=== PATIENT | male | born 1940 | race Caucasian/White ===

== ENCOUNTER 2016-07-26 14:32 | Emergency (ER) | payer OTHER ==
[~2016-07-26] VITALS: Ht 188 cm; Wt 113.4 kg
--- NOTE | ~2016-07-26 | EKG ---
[place] [address] [facility] [place] [address] ELECTROCARDIOGRAM REPORT Name: BRISA THOMAS Room #: DEP [facility]#: [id number] Admission: 07/26/16 Attend Phys: Discharge: 07/26/16 Date of : 42 Report #: [id number] THIS REPORT FOR: //name// [facility] ED Test Date: 2016-07-26 Test Time: 14:58:11 Pat Name: BRISA THOMAS Department: Room: Gender: M Gre Tutor: [id number] : 1940 Requested By: Abdi Stovall Order Number: [id number] MD: Pablo Medina Measurements Intervals [place] Rate: 66 P: 42 AL: 167 QRS: 23 QRSD: 103 T: 77 QT: 582 QTc: 610 Interpretive Statements Sinus rhythm Abnormal R-wave progression, early transition Borderline T wave abnormalities Prolonged QT interval Compared to ECG 05/08/2016 06:38:09 Prolonged QT interval now present Electronically Signed On 07-27-2016 14:21:02 STEM CUTTER by Pablo Medina [email or web address] <ELECTRONICALLY SIGNED> By: Pablo Medina MD, [facility] 07/27/16 142 1458 1458 Pablo Medina MD, [facility] /EPI
[~2016-07-26 14:32] MED LIST: ACETAMINOPHEN325 M1 PO; ADULT LOW DOSE81 MG PO; ALENDRONATE SOD70 MG PO; AMBIEN 10 MG TA10 MG PO; AMBIEN 5 MG TABL5 M1 PO; ASPIRIN EC81 M1 PO; B12INJ IM; BIOTENE1000 ML; BYSTOLIC 5 MG5 M1 PO; BYSTOLIC 5 MG5 MG PO; CELEXA; CELEXA 20 MG TA20 M1 PO; CELEXA 20 MG TA20 MG PO; CLOTRIMAZOLE-BE15 GM; COUMADIN 5 MG TA5 M1 PO; DEPO-TESTO200 MG/1 M; DEXILANT60 MG PO; DUONEB 2.5-0.5 M3 ML INH; ENOXAPARIN120 MG/0.1 SUBQ; FISH OIL 1,2001 EAC4 PO; FISHOIL; FISHOIL PO; FLUVASTATIN SOD40 MG PO; FOSAMAX 70 MG T70 MG PO; HYDROCODONE-APA1 TA1 PO; LEVAQUIN 500 M500 M2 PO; LEXAPRO20 MG PO; LIDODERM 5%1 PATC1 TRANSDERM; LISINOPRIL10 MG PO; LISINOPRIL20 MG PO; LISINOPRIL40 MG PO; LISINOPRIL5 MG PO; LOPERAMIDE 2 MG2 M1 PO; METHYLFOLATE PO; MOBIC15 MG PO; NORCO 5-325 TA1 EACH PO; NORVASC5 MG PO; PRAVASTATIN SOD40 MG PO; PREDNISONE 20 M20 MG PO; PROMETHAZINE-D120 ML PO; PROTONIX40 M2 PO; SIMVASTATIN40 MG PO; TRAZODONE HCL50 MG PO; VERAPAMIL HCL180 MG PO; VITAMIN A10000 UNI3 PO; VITAMIN D 5050000 I1 PO; VITAMIN D1000 UNI1 PO; VITAMIN D2000 UNI1 PO; XANAX 0.5 MG0.5 MG PO; ZETIA10 MG PO; ZOFRAN ODT4 MG PO; ZONEGRAN100 MG PO
[2016-07-26 15:07] LABS: ABSOLUTE NEUTROPHILS 5.8 thou/uL (1.4-8.2); BASOPHILS 0.9 % (0.0-2.0); EOSINOPHILS 3.5 % (0.0-3.0); HEMATOCRIT 36.2 % (42.0-52.0); HEMOGLOBIN 12.5 gm/dL (14.0-18.0); LYMPHOCYTES 18.3 % (24.0-44.0); MCH 32.6 pg (26.0-34.0); MCHC 34.4 % (28.0-37.0); MCV 94.5 fL (80.0-100.0); MONOCYTES 7.1 % (1.0-8.0); PLATELET COUNT 215 thou/uL (150-400); POLYS 70.2 % (36.0-66.0); RBC 3.83 mil/uL (4.50-6.00); RDW 14.1 % (10.5-14.5); WBC 8.2 thou/uL (4.0-11.0)
[2016-07-26] MEDS ORDERED: TOBRAMYCIN-DEXAM5 ML OP (15:09)
[2016-07-26 15:15] LABS: CALCIUM 8.7 mg/dL (8.5-10.1); CREATININE 2.1 mg/dL (0.6-1.3); POTASSIUM 3.5 mmol/L (3.5-5.1)
[2016-07-26 15:19] LABS: MANUAL DIFF NO
[2016-07-26 15:20] LABS: ALBUMIN 3.4 g/dL (3.4-5.0); TOTAL BILIRUBIN 0.4 mg/dL (<0.1-1.0); TOTAL PROTEIN 7.3 g/dL (6.4-8.2)
[2016-07-26] MEDS ORDERED: VENTOLIN HFA 1818 GM INH (15:38)
[2016-07-26] MEDS ORDERED: PROMETH-CODEIN 65 ML PO (15:38)
== END 2016-07-26 16:36 | disposition home or self-care (01) ==
LOC: ER 14:32
PROVIDERS: Emergency Medicine
DX: J20.8 Acute bronchitis due to other specified organisms (principal); I10 Essential (primary) hypertension; E78.5 Hyperlipidemia, unspecified; Z85.46 Personal history of malignant neoplasm of prostate

== ENCOUNTER 2017-02-09 18:32 | Inpatient (IN) | payer OTHER ==
[~2017-02-09] VITALS: Ht 190.5 cm; Wt 122.5 kg
--- NOTE | ~2017-02-09 | HC ---
[facility] [place] [address] CONSULTATION Name: BRISA THOMAS Room #: 537-P [facility] IN M.R.#: [id number] Admission: 02/09/17 Attend Phys: Yoseph Vega MD Discharge: 02/16/17 Date of : 42 Report #: [id number] THIS REPORT FOR: //name// CC: Aminta Vega DATE OF SERVICE: 02/10/2017 REASON FOR CONSULTATION: Pneumonia. IMPRESSION: 1. Likely community-acquired pneumonia with pleuritic pain. 2. Irregular density in left base, 2.4 x 5, will need followup. 3. Hypoxia. 4. Leukocytosis. 5. Hypertension. 6. Nonobstructive left-sided nephrolithiasis. PLAN: I agree with current aerosol therapy. Follow chest x-ray in a.m. We will check a nocturnal desaturation study to look for obstructive sleep apnea. We will follow closely with you. HISTORY OF PRESENT ILLNESS: A 76-year-old male comes in with complaint of left-sided pain, cramping, may have been pleuritic in nature from onset, was found to have stone on left; however, also found to have an infiltrate there. He denies sputum production and did have a Gram stain that was ill as well as with hand, foot and mouth and his had a respiratory infection. He is a nonsmoker. No history of asthma. There is snoring, no definite sleep apnea. ALLERGIES: NO KNOWN. MEDICATIONS: Prior include fish oil, Protonix, aspirin, Fosamax, B12, Leggett, D3, Lexapro, , Ambien, Norvasc. PAST SURGICAL HISTORY: Include CABG x 2, ORIF left tib-fib 2005, left knee scope 1993. FAMILY HISTORY: Heart disease. SOCIAL HISTORY: Negative tobacco, negative ETOH. REVIEW OF SYSTEMS: Positive for hypertension, hyperlipidemia, prostate CA, pneumonia, vertigo, GERD. PHYSICAL EXAMINATION: EYES: Negative icterus. [facility] [address] [place] [address] CONSULTATION Name: BRISA THOMAS [place] Room #: 537-P [facility] IN ..#: [id number] Admission: 02/09/17 Attend Phys: Yoseph Vega MD Discharge: 02/16/17 Date of : 42 Report #: [id number] NECK: Negative JVD. LUNGS: Showed coarse breath sounds, left greater than right. HEART: Regular. ABDOMEN: Bowel sounds present. Hernia noted. EXTREMITIES: Showed no edema or cyanosis. NEUROLOGIC: Alert and oriented. is present in the room. LABORATORY DATA: Urine Legionella and Strep were negative. Lactate 0.6, BUN 29, creatinine 1.7. White count 13.9, hemoglobin 12.2, platelets 170. CT for renal stone showed 2.4 x 5 irregular subpleural density, left base. CT followup in 6 weeks for resolution of infiltrate/mass. <ELECTRONICALLY SIGNED> By: David Holloway MD 02/16/17 1511 1820 1846 David Holloway MD /nt
--- NOTE | ~2017-02-09 | EKG ---
[place] [address] [place] [address] ELECTROCARDIOGRAM REPORT Name: BRISA THOMAS Room #: 548-I ADM IN M.R.#: [id number] Admission: 02/09/17 Attend Phys: Yoseph Vega MD Discharge: Date of : 42 Report #: [id number] THIS REPORT FOR: //name// [facility] Test Date: 2017-02-13 Test Time: 06:33:26 Pat Name: BRISA THOMAS Department: Room: 548 I Gender: M Supervisor Assembling: : 1940 Requested By: Becca Pisano Order Number: [id number] MD: Pablo Medina Measurements Intervals [place] Rate: 153 P: CO: QRS: 82 QRSD: 93 T: 223 QT: 264 QTc: 422 Interpretive Statements Atrial fibrillation with rapid V-rate Borderline right axis deviation Abnormal R-wave progression, early transition Repolarization abnormality, prob rate related Compared to ECG 07/26/2016 14:58:11 Atrial fibrillation has replaced sinus rhythm ST and T wave abnormality is more pronounced Electronically Signed On 02-13-2017 8:38:39 CDT by Pablo Medina [email or web address] <ELECTRONICALLY SIGNED> By: Pablo Medina MD, [facility] 02/13/17 0838 0633 0633 Pablo Medina MD, [facility] /EPI
--- NOTE | ~2017-02-09 | HC ---
[facility] [place] [address] CONSULTATION Name: BRISA THOMAS Room #: 213-P ADM IN M.R.#: [id number] Admission: 02/09/17 Attend Phys: Yoseph Vega MD Discharge: Date of : 42 Report #: [id number] THIS REPORT FOR: //name// CC: Aminta Vega REASON FOR CONSULTATION: Elevated creatinine. REASON FOR PRESENTATION: Shortness of breath. HISTORY OF PRESENT ILLNESS: A 76-year-old with past medical history of diabetes mellitus, hypertension, hyperlipidemia, coronary artery disease, status post CABG. He is also known to have chronic kidney disease with a baseline creatinine of around 2.0. He follows with another railroad engineer out of my group and his name is Dr. Devlin. He presented complaining of left-sided chest pain. This was associated with significant shortness of breath with no fever or chills. He did report some cough, but no hemoptysis. No urinary symptoms. No previous similar episodes. On presentation to the emergency room, he was found to have creatinine of 2.0. This has gone down to 1.9 and then started to go up again to 2.9 and then trended back to 2.7. He was diagnosed to have left-sided pneumonia and was managed accordingly. CT scan revealed that there is a subpleural density within the left lung base. I am being consulted to manage his chronic kidney disease. From the renal perspective, as I have stated, he is known to have chronic kidney disease. He is also known to have bilateral nephrolithiasis that were nonobstructive in the past and this was confirmed on the recent CT. PAST MEDICAL HISTORY: 1. Hypertension. 2. Coronary artery disease, status post CABG. 3. Hyperlipidemia. PAST SURGICAL HISTORY: 1. Prostate cancer, status post radiotherapy. 2. Status post open reduction and internal fixation of left tibial fibular fracture. 3. Arthroscopy. MEDICATIONS: 1. Fish oil. 2. Protonix. 3. Alendronate. 4. Ambien. 5. Amlodipine. ALLERGIES: No known drug allergies. [facility] [address] [place] [address] CONSULTATION Name: THOMASBRISASABINE PEREZ Room #: 213-P [facility] IN ..#: [id number] Admission: 02/09/17 Attend Phys: Yoseph Vega MD Discharge: Date of : 42 Report #: [id number] SOCIAL HISTORY: No drug or alcohol abuse. He lives with his . He used to work for the sales industry. REVIEW OF SYSTEMS: GENERAL: No fever or chills. CARDIOVASCULAR: As per the history of present illness. PULMONARY: As per the history of present illness. GASTROINTESTINAL: No nausea or vomiting. GENITOURINARY: No frequency, no urgency. MUSCULOSKELETAL: Diffuse rash on the lower extremities. NEUROLOGICAL: No weakness, no syncope. PHYSICAL EXAMINATION: GENERAL: He is alert, oriented, in no apparent distress. VITAL SIGNS: Blood pressure was 127/69, no hypotensive episodes, temperature was 37.4, pulse rate was 76. HEAD AND NECK: No jugular venous distention, no bruit, no thyromegaly. CHEST: Clear to auscultation bilaterally with very minimal crackles on the left side. CARDIOVASCULAR: Irregular with no rub detected. ABDOMEN: Soft, nontender with no hepatosplenomegaly. EXTREMITIES: Lower extremities, +2 edema. SKIN: There are old skin lesions on both lower extremities that seems to be like . LABORATORY VALUES: Reviewed. Creatinine is down to 2.7. UA with trace protein. ASSESSMENT, IMPRESSION AND PLAN: 1. Chronic kidney disease. 2. Left-sided pneumonia with what seems to be a left subpleural opacity or mass. 3. Hypertension. 4. Hyperlipidemia. 5. Coronary artery disease, status post coronary artery bypass graft. 6. Initiate appropriate acute kidney injury workup, evaluate the urine protein to creatinine ratio. He went into atrial fibrillation yesterday and received appropriate medications. This might have caused the worsening of his kidney issues due to hypoperfusion given a short episode of hypertension. 7. Cultures were obtained and the patient is being currently maintained on appropriate antibiotic for the left-sided pneumonia. 8. I agree with holding his blood pressure medications. 9. Nonobstructive stones reported on the CT scan and he does not seem to have any obstructive symptoms; however, I will ask the nursing staff to scan his bladder. 10. Discontinue IV fluid. [address] [address] CONSULTATION Name: BRISA THOMAS BLODGETT Room #: 213-P [facility] IN M.R.#: [id number] Admission: 02/09/17 Attend Phys: Yoseph Vega MD Discharge: Date of : 42 Report #: [id number] 11. He does have edema that will need to be addressed in the next few days and will likely require some shelter diuresis given his diastolic dysfunction. 12. Flomax had been started. 13. We will continue to follow along. <ELECTRONICALLY SIGNED> By: Alma Cedillo MD 02/15/17 1043 1648 1946 Alma Cedillo MD /nt
--- NOTE | ~2017-02-09 | 2DMMODE ---
[facility] [address] [place] [address] 2 D/M-MODE ECHOCARDIOGRAM Name: THOMASBRISAJc PEREZ Room #: 213-P ADM IN M.R.#: [id number] Admission: 02/09/17 Attend Phys: Yoseph Vega MD Discharge: Date of : 42 Date of Service: 02/13/17 1524 Report #: [id number] THIS REPORT FOR: //name// APPROVED REPORT Study performed: 02/13/2017 11:45:57 EXAM: Comprehensive 2D, Doppler, and color-flow Echocardiogram Patient Location: Bedside Room #: 213 Status: routine Other Information Study Quality: Technically Limited Indications Atrial Fibrillation Hx HLP, CAD CABG 2D Dimensions RVDd: 52.62 mm LVEF(%): 59.52 (>50%) IVSd: 14.65 (7-11mm) LVOT Diam: 20.57 (18-24mm) LVDd: 49.92 mm PWd: 13.39 (7-11mm) Ascending Ao: 35.22 (22-36mm) LVDs: 34.08 (25-40mm) Aortic Root: 32.38 mm Arciniega's LVEF: 59.52 % Volumes Left Atrial Volume (Systole) Single Plane 4CH: 56.00 mL Single Plane 2CH: 59.29 mL LA ESV Index: 33.00 mL/m2 Aortic Valve AoV Peak Alexx.: 2.65 m/s AO Peak Gr.: 18.25 mmHg LVOT Max P.95 mmHg AO Mean Gr.: 15.32 mmHg LVOT Mean P.85 mmHg AO V2 Mean: 1.84 m/s LVOT Max V: 1.24 m/s AO V2 VTI: 56.98 cm LVOT Mean V: 0.78 m/s JORGE (VTI): 1.52 cm2 LVOT V1 VTI: 26.00 cm JORGE Vmax: 1.55 cm2 SV (LVOT): 86.33 mL Mitral Valve E/A Ratio: 1.9 [facility] [address] [place] [address] 2 D/M-MODE ECHOCARDIOGRAM Name: BRISA THOMAS [place] Room #: 213-P [facility] IN ..#: [id number] Admission: 02/09/17 Attend Phys: Yoseph Vega MD Discharge: Date of : 42 Date of Service: 02/13/17 1524 Report #: [id number] MV Decel. Time: 223.64 ms MV E Max Alexx.: 1.29 m/s MV A Alexx.: 0.67 m/s MV PHT: 64.86 ms IVRT: 59.98 ms Pulmonary Valve PV Peak Alexx.: 1.05 m/s PV Peak Gr.: 4.41 mmHg Pulmonary Vein P Vein S: 0.38 m/s P Vein A: 0.22 m/s P Vein D: 0.49 m/s P Vein A Dur.: 101.5 msec P Vein S/D Ratio: 0.78 Tricuspid Valve TR Peak Alexx.: 3.65 m/s RAP Estimate: 10.00 mmHg TR Peak Gr.: 53.19 mmHg PA Pressure: 63.00 mmHg Left Ventricle The left ventricle is normal size. Regional wall motion is normal. Mild concentric left ventricular hypertrophy. The left ventricular systolic function is normal. The left ventricular ejection fraction is within the normal range. LVEF is 55-60%. Grade III - reversible restrictive diastolic dysfunction. Right Ventricle Right ventricle is dilated. Right ventricle is mildly hypokinetic. Atria Left atrium is at the upper limits of normal. Right atrium is dilated. Aortic Valve Aortic valve is calcified. Aortic valve leaflets are mildly thickened. No aortic regurgitation is present. Mild aortic stenosis. Mitral Valve The mitral valve is normal in structure. Mild mitral regurgitation. No evidence of mitral valve stenosis. Tricuspid Valve The tricuspid valve is normal in structure. There is trace to mild tricuspid regurgitation. The right atrial pressure is estimated at [address] [place] [address] 2 D/M-MODE ECHOCARDIOGRAM Name: BRISA THOMAS CHRIS Room #: 213-P ADM IN M.R.#: [id number] Admission: 02/09/17 Attend Phys: Yoseph Vega MD Discharge: Date of : 42 Date of Service: 02/13/17 1524 Report #: [id number] mmHg. There is moderate pulmonary hypertension with an estimated PAP of 63 mmHg. Pulmonic Valve The pulmonary valve is normal in structure. There is no pulmonic valvular regurgitation. Great Vessels The aortic root is normal in size. IVC is not well visualized. Pericardium Trivial anterior pericardial effusion. <Conclusion> LVEF is 55-60%. Regional wall motion is normal. Mild aortic stenosis. No aortic regurgitation is present. Grade III - reversible restrictive diastolic dysfunction. Right ventricle is dilated. Right ventricle is mildly hypokinetic. Left atrium is at the upper limits of normal. Right atrium is dilated. Mild mitral regurgitation. There is trace to mild tricuspid regurgitation. The right atrial pressure is estimated at 10 mmHg. There is moderate pulmonary hypertension with an estimated PAP of 63 mmHg. Trivial anterior pericardial effusion. <ELECTRONICALLY SIGNED> By: Chuck Padilla MD, FACC 02/13/17 1524 1524 1524 Chuck Padilla MD, FACC /INF
[2017-02-09 18:32] VITALS: BP 158/70
[~2017-02-09 18:32] MED LIST changes: +PROMETH-CODEIN 65 ML PO; +TOBRAMYCIN-DEXAM5 ML OP; +VENTOLIN HFA 1818 GM INH
[2017-02-09 18:50] LABS: HEMATOCRIT 38.4 % (42.0-52.0); HEMOGLOBIN 12.9 gm/dL (14.0-18.0); MCHC 33.5 g/dL (28.0-37.0); MCV 95.7 fL (80.0-100.0); PLATELET COUNT 202 thou/uL (150-400); RBC 4.01 mil/uL (4.50-6.00); RDW 13.5 % (10.5-14.5); WBC 12.3 thou/uL (4.0-11.0)
[2017-02-09 18:56] LABS: MANUAL DIFF YES
[2017-02-09 18:58] LABS: POTASSIUM 4.4 mmol/L (3.5-5.1)
[2017-02-09 19:04] LABS: ALBUMIN 3.2 g/dL (3.4-5.0); TOTAL BILIRUBIN 0.3 mg/dL (<0.1-1.0); TOTAL PROTEIN 7.4 g/dL (6.4-8.2)
[2017-02-09 19:18] LABS: ABSOLUTE NEUTROPHILS 9.7 thou/uL (1.4-8.2); PLATELET ESTIMATE NORMAL; TOTAL CELL COUNT 100
[2017-02-09 19:53] LABS: URINE BILIRUBIN NEGATIVE (Negative); URINE BLOOD 1+ (Negative); URINE COLOR YELLOW; URINE GLUCOSE-RANDOM* NEGATIVE (Negative); URINE KETONES NEGATIVE (Negative); URINE LEUKOCYTES-REFLEX NEGATIVE (Negative); URINE PROTEIN (DIPSTICK) 1+ (Negative); URINE SPECIFIC GRAVITY 1.025 (1.003-1.035); URINE UROBILINOGEN 0.2 E.U./dl (0.2-1.0)
[2017-02-09 20:06] LABS: CRYSTALS None Seen /LPF (None Seen); SQUAMOUS None Seen /LPF (0-3)
[2017-02-09 20:07] LABS: HYALINE CASTS 0-3 Few /LPF (None Seen); URINE RBC 0-2 Rare /HPF (0-2); URINE WBC-REFLEX None Seen /HPF (0-5)
[2017-02-09 22:35] VITALS: BP 168/77
[2017-02-10 03:18] VITALS: BP 156/76
[2017-02-10 04:58] LABS: HEMATOCRIT 36.5 % (42.0-52.0); HEMOGLOBIN 12.2 gm/dL (14.0-18.0); MCHC 33.5 g/dL (28.0-37.0); MCV 95.7 fL (80.0-100.0); RBC 3.82 mil/uL (4.50-6.00); RDW 13.4 % (10.5-14.5); WBC 13.9 thou/uL (4.0-11.0)
[2017-02-10 05:29] LABS: CALCIUM 8.5 mg/dL (8.5-10.1); CREATININE 1.7 mg/dL (0.7-1.3); POTASSIUM 4.6 mmol/L (3.5-5.1)
[2017-02-10 06:54] VITALS: BP 148/73
[2017-02-10 16:18] VITALS: BP 140/54
[2017-02-10 21:00] VITALS: BP 140/54
[2017-02-11 04:00] VITALS: BP 127/61
[2017-02-11 08:14] VITALS: BP 119/57
[2017-02-11 16:19] VITALS: BP 126/57
[2017-02-11 20:05] VITALS: BP 134/50
[2017-02-12 05:22] VITALS: BP 127/58
[2017-02-12 07:09] LABS: ALBUMIN 2.7 g/dL (3.4-5.0); CALCIUM 7.7 mg/dL (8.5-10.1); PHOSPHORUS 3.6 mg/dL (2.5-4.9); POTASSIUM 4.1 mmol/L (3.5-5.1)
[2017-02-12 07:15] LABS: CREATININE 2.9 mg/dL (0.7-1.3)
[2017-02-12 09:23] VITALS: BP 138/65
[2017-02-12 11:59] LABS: ALBUMIN 2.9 g/dL (3.4-5.0); CALCIUM 7.8 mg/dL (8.5-10.1); CREATININE 2.9 mg/dL (0.7-1.3); PHOSPHORUS 3.7 mg/dL (2.5-4.9); POTASSIUM 3.8 mmol/L (3.5-5.1)
[2017-02-12 12:16] LABS: URINE BILIRUBIN NEGATIVE (Negative); URINE BLOOD 2+ (Negative); URINE COLOR YELLOW; URINE GLUCOSE-RANDOM* NEGATIVE (Negative); URINE KETONES NEGATIVE (Negative); URINE LEUKOCYTES-REFLEX NEGATIVE (Negative); URINE PROTEIN (DIPSTICK) TRACE (Negative); URINE SPECIFIC GRAVITY 1.015 (1.003-1.035); URINE UROBILINOGEN 0.2 E.U./dl (0.2-1.0)
[2017-02-12 12:23] LABS: SQUAMOUS None Seen /LPF (0-3)
[2017-02-12 12:24] LABS: CASTS None Seen /LPF (None Seen); CRYSTALS None Seen /LPF (None Seen); URINE RBC None Seen /HPF (0-2); URINE WBC-REFLEX None Seen /HPF (0-5)
[2017-02-12 16:07] VITALS: BP 140/59
[2017-02-12 18:51] VITALS: BP 128/56
[2017-02-13] VITALS (7 sets, daily range): BP systolic 14–161; BP diastolic 59–89
[2017-02-13 11:05] LABS: CREATININE 2.7 mg/dL (0.7-1.3)
[2017-02-13 17:33] LABS: URINE POTASSIUM-RANDOM* 17.2 mmol/L
[2017-02-13 17:35] LABS: URINE CREATININE-RANDOM* 76.4 mg/dL; URINE PROTEIN-RANDOM* 40.8 mg/dL (<11.9)
[2017-02-14 03:37] VITALS: BP 130/66
[2017-02-14 07:08] LABS: HEMOGLOBIN 10.2 gm/dL (14.0-18.0); MCH 32.5 pg (26.0-34.0); MCHC 34.2 g/dL (28.0-37.0); MCV 95.2 fL (80.0-100.0); RBC 3.15 mil/uL (4.50-6.00); RDW 13.6 % (10.5-14.5); WBC 8.6 thou/uL (4.0-11.0)
[2017-02-14 07:32] LABS: ALBUMIN 2.6 g/dL (3.4-5.0); CALCIUM 8.4 mg/dL (8.5-10.1); CREATININE 2.9 mg/dL (0.7-1.3); PHOSPHORUS 4.1 mg/dL (2.5-4.9); POTASSIUM 4.3 mmol/L (3.5-5.1); TROPONIN-I 0.07 ng/mL (<0.04-0.07)
[2017-02-14 07:52] VITALS: BP 130/65
[2017-02-14 11:47] VITALS: BP 135/72
[2017-02-14 15:01] VITALS: BP 146/74
[2017-02-14 19:34] VITALS: BP 150/70
[2017-02-15 02:54] VITALS: BP 162/82
[2017-02-15 05:26] LABS: ALBUMIN 2.7 g/dL (3.4-5.0); CALCIUM 8.8 mg/dL (8.5-10.1); CREATININE 2.7 mg/dL (0.7-1.3); PHOSPHORUS 3.8 mg/dL (2.5-4.9); POTASSIUM 4.4 mmol/L (3.5-5.1)
[2017-02-15 08:00] VITALS: BP 138/81
[2017-02-15 16:00] VITALS: BP 139/60
[2017-02-15 18:48] VITALS: BP 171/69
[2017-02-16 02:26] VITALS: BP 148/69
[2017-02-16 05:30] LABS: ALBUMIN 2.5 g/dL (3.4-5.0); CALCIUM 8.4 mg/dL (8.5-10.1); CREATININE 2.4 mg/dL (0.7-1.3); PHOSPHORUS 3.9 mg/dL (2.5-4.9); POTASSIUM 4.3 mmol/L (3.5-5.1)
[2017-02-16 07:25] VITALS: BP 168/80
[2017-02-16] MEDS ORDERED: CEFUROXIME500 MG PO (10:47)
[2017-02-16] MEDS ORDERED: FLOMAX0.4 MG PO (10:47)
[2017-02-16] MEDS ORDERED: CARDIZEM CD180 MG PO (10:48)
[2017-02-16 13:03] VITALS: BP 168/80
== END 2017-02-16 13:38 | disposition home health service (06) | DRG 871 ==
LOC: ER 18:32 → 5S 21:46 → EROBS 21:46 → 5S 22:23 → 2N 02-13 08:54 → 5S 02-15 10:54
PROVIDERS: Emergency Medicine; Hospitalist; Nurse Practitioner Family
DX: A41.9 Sepsis, unspecified organism (principal); I50.31 Acute diastolic (congestive) heart failure; J18.9 Pneumonia, unspecified organism; J96.01 Acute respiratory failure with hypoxia; I13.0 Hypertensive heart and chronic kidney disease with heart failure and stage 1 through stage 4 chronic kidney disease, or unspecified chronic kidney disease; N17.9 Acute kidney failure, unspecified; I25.10 Atherosclerotic heart disease of native coronary artery without angina pectoris; N28.1 Cyst of kidney, acquired; I48.91 Unspecified atrial fibrillation; K21.9 Gastro-esophageal reflux disease without esophagitis; R91.8 Other nonspecific abnormal finding of lung field; E11.22 Type 2 diabetes mellitus with diabetic chronic kidney disease; N20.0 Calculus of kidney; N18.3 Chronic kidney disease, stage 3 (moderate); E78.5 Hyperlipidemia, unspecified; G47.30 Sleep apnea, unspecified; Z95.1 Presence of aortocoronary bypass graft; Z85.46 Personal history of malignant neoplasm of prostate; Z92.21 Personal history of antineoplastic chemotherapy; Z87.01 Personal history of pneumonia (recurrent); Z82.49 Family history of ischemic heart disease and other diseases of the circulatory system
CPT/HCPCS: 10081; 10086; 10089